=== PATIENT | female | born 1965 | race Caucasian/White ===

== ENCOUNTER 2021-06-25 22:11 | Emergency (ER) | payer MEDICAID ==
[~2021-06-25] VITALS: Ht 152.4 cm; Wt 70.3 kg
[2021-06-25 22:16] VITALS: BP 100/74
--- NOTE | 2021-06-25 22:30 | NUR ---
URINE SAMPLE COLLECTED AND HANDED TO KASSIDY FROM LAB
--- NOTE | 2021-06-25 22:44 | NUR ---
PT. AMBULATED TO CHAIR A WITH EVEN AND STEADY GAIT
--- NOTE | 2021-06-25 22:45 | NUR ---
LABS BEING DRAWN AT THIS TIME BY KASSIDY
[2021-06-25 22:54] LABS: BASOPHILS % (AUTO) 0.4 % (0.0-2.0); EOSINOPHILS % (AUTO) 0.1 % (0.0-4.0); HEMATOCRIT 36.7 % (36-48); HEMOGLOBIN 12.2 g/dL (12.0-16.0); LYMPHOCYTES # (AUTO) 1.5 K/uL (2.5-16.5); LYMPHOCYTES % (AUTO) 43.2 % (20.5-51.1); MEAN CORPUSCULAR HEMOGLOBIN 30 pg (27-31); MEAN CORPUSCULAR HGB CONC 33 g/dL (33-37); MEAN CORPUSCULAR VOLUME 91.1 fL (80-94); MONOCYTES # (AUTO) 0.2 K/uL (0.8-1.0); MONOCYTES % (AUTO) 6.4 % (1.7-9.3); NEUTROPHILS # (AUTO) 1.7 K/uL (1.8-7.7); NEUTROPHILS % (AUTO) 49.9 % (42.2-75.2); PLATELET COUNT (AUTO) 207 K/uL (140-450); RED BLOOD CELL COUNT(AUTO) 4.02 MIL/uL (4.20-5.40); RED CELL DISTRIBUTION WIDTH 13.7 % (11.6-13.7); WHITE BLOOD COUNT (AUTO) 3.5 K/uL (4.8-10.8)
[2021-06-25 22:54] LABS: APPEARANCE,URINE CLEAR (CLEAR); BILIRUBIN,URINE NEGATIVE (NEGATIVE); BLOOD, URINE NEGATIVE (NEGATIVE); COLOR,URINE YELLOW (YELLOW); LEUKOCYTE ESTERASE ,URINE NEGATIVE (NEGATIVE); NITRITE, URINE NEGATIVE (NEGATIVE); UGLUCOSE 2+ (NEGATIVE)
--- NOTE | 2021-06-25 23:07 | NUR ---
PT RETURN FROM XRAY TO CHAIR A
[2021-06-25 23:09] LABS: ALBUMIN 3.3 g/dL (3.4-5.0); ANION GAP 11.8 (8-16); CARBON DIOXIDE 29.3 mmol/L (21-32); CREATININE 1.4 mg/dL (0.6-1.3); POTASSIUM 4.1 mmol/L (3.5-5.1); TOTAL BILIRUBIN 0.3 mg/dL (0.0-1.0)
--- NOTE | 2021-06-25 23:12 | NUR ---
KALYAN SWAB COLLECTED AND WALKED TO LAB
[2021-06-25] MEDS ORDERED: REGENERON ANTIBODY ER ORDER 1 EA MISC MC ONE (23:40)
[2021-06-25] MEDS ORDERED: ZINC50TA76 PO (23:56)
[2021-06-25] MEDS ORDERED: IVER3TAB2 PO (23:56)
[2021-06-25] MEDS ORDERED: vit d3 PO (23:56)
[2021-06-25] MEDS ORDERED: VIT PO (23:56)
[2021-06-25] MEDS ORDERED: DOXY-565 PO (23:56)
[2021-06-26] MEDS ORDERED: KETOROLAC 30 MG/ML VIAL IVP ONE (00:10)
[2021-06-26] MEDS ORDERED: NACL 0.9% 1,000 ML IV ONE (00:10)
--- NOTE | 2021-06-26 00:20 | NUR ---
CONTANCTED EXTERIOR WORK HELPER FOR PATIENT MEDICATION OF [facility]. PER EXTERIOR WORK HELPER WILL BRING MEDICATION WHEN PHARMACY BRINGS IT. UNKNOWN ETA.
--- NOTE | 2021-06-26 00:22 | NUR ---
PT MOVED TO ER BED 10
--- NOTE | 2021-06-26 00:23 | NUR ---
56 YO/F BIB SELF W C/O DIZZINESS, HEADACHE, BODYACHES, FEVER AND NAUSEA X3 DAYS WORSENING TODAY. PATIENT DENIES ANY COUGH, CHEST PAIN OR SOB. PATIENT REPORTS X1 EPISODE OF VOMIT YESTERDAY, NONE TODAY, NO FEVER TODAY. PATIENT AOX4, GCS 15, LUNG SOUNDS CLEAR THROUGH OUT W BREATHING EVEN AND UNLABORED, BOWELS SOUNDS PRESENT, ABDOMEN SOFT AND NON-TENDER. AMBULATORY W STEADY GAIT. PATIENT LAYING IN BED SUPINE, WITH BLANKET. BED LOCKED IN LOWEST POSITION W X2 SIDERAILS UP. VSS. NAD NOTED, WILL CONTINUE TO MONITOR. PMH:DIABETES ALLERGIES: PENICILLINS
[2021-06-26] MEDS ORDERED: NON-FORMULARY ITEM 1 EA in NACL 0.9% 100 ML IV ONE ×2 (00:45→00:50)
--- NOTE | 2021-06-26 01:07 | NUR ---
PATIENT REPORTS PAIN IMPROVEMENT, REPORTS SHE IS FEELING BETTER. PATIENT O2 SAT AT 89% , PER ERMD TO CONTINUE MONITOR W/O O2 ON ROOM AIR.
--- NOTE | 2021-06-26 01:25 | NUR ---
PT TAKEN TO CT
--- NOTE | 2021-06-26 01:31 | NUR ---
PATIENT TAKEN TO CT VIA WHEELCHAIR.
--- NOTE | 2021-06-26 01:33 | NUR ---
PT RETURN FROM CT
--- NOTE | 2021-06-26 01:48 | NUR ---
REGENERON MEDICATION RECEIVED FROM PHARMACIST.
[2021-06-26 03:04] VITALS: BP 138/62
--- NOTE | 2021-06-26 03:04 | NUR ---
Patient discharged with v/s stable. Written and verbal after care instructions given and explained. Patient alert, oriented and verbalized understanding of instructions. Ambulatory with steady gait. All questions addressed prior to discharge. ID band removed. Patient advised to follow up with PMD. Rx of DOXYCYCLINE MONOHYDRATE, IVERMECTIN, ZIN given. Patient educated on indication of medication including possible reaction and side effects. Opportunity to ask questions provided and answered. THE DISCHARGE COMPLETED BY .
== END 2021-06-26 03:04 | disposition home or self-care (01) ==
LOC: MED 22:11
DX: T88.0XXA Infection following immunization, initial encounter (principal); U07.1 COVID-19; E11.9 Type 2 diabetes mellitus without complications; Z88.0 Allergy status to penicillin; Z79.899 Other long term (current) drug therapy
CPT/HCPCS: 36415; 71045; 71250; 80053; 81003; 81025; 83605; 84484; 85025; 87040; 87426; 93005; 96361; 96365; 96375; 99285; J1885; J7030